=== PATIENT | male | born 1980 | race Caucasian/White ===

== ENCOUNTER 2016-09-18 10:32 | Outpatient (CLI) | payer OTHER ==
[~2016-09-18] VITALS: Ht 167.6 cm; Wt 108.9 kg
--- OUTSIDE RECORDS SUMMARY | 2016-09-18 10:35 | XMS REPORT | Continuity of Care Document ---
Author Author [facility] Organization [facility] Address Unknown Phone Unavailable Allergies Active Description Code Type Severity Reaction Onset Reported/Identified Relationship to Patient Clinical Status Yes meperidine [id number] Drug Allergy Mild N/A 11/12/2014 Medications Problems Date Dx Coded Attending Type Code Diagnosis Diagnosed By 07/31/2014 RHONDA FLORENCE MD Ot 723.1 07/31/2014 RHONDA FLORENCE MD Ot V57.1 08/01/2014 RHONDA FLORENCE MD Ot 723.1 08/01/2014 RHONDA FLORENCE MD Ot V57.1 08/03/2014 RHONDA FLORENCE MD Ot 723.1 08/03/2014 RHONDA FLORENCE MD Ot V57.1 11/12/2014 RHONDA FLORENCE MD Ot 721.0 11/12/2014 RHONDA FLORENCE MD Ot 722.4 11/12/2014 RHONDA FLORENCE MD Ot 729.1 11/12/2014 RHONDA FLORENCE MD Ot V58.69 Procedures Results Encounters ACCT No. Visit Date/Time Discharge Status Pt. Type Provider Facility Loc./Unit Complaint [id number] 11/12/2014 13:22:00 2014 15:14:00 DIS Outpatient RHONDA FLORENCE MD [facility] CARD [id number] 07/31/2014 15:06:00 2013 15:49:00 DIS Outpatient RHONDA FLORENCE MD [facility] REHAB
[2016-09-18] MEDS ORDERED: DEXAMETHASONE PF 10 MG/ML (DECADRON) VIAL ONE (10:39)
[2016-09-18 10:51] VITALS: BP 129/90
[2016-09-18 11:24] VITALS: BP 147/92
--- NOTE | 2016-09-18 14:10 | Pain Medicine-Procedure ---
Procedure Pre-Op/Post-Op Diagnosis Diagnosis: disc disorder with radiculopathy, cervical Indications for Operation Neck pain Attending Surgeon Hany Procedure Date of Service: Sep 18, 2016 Procedure: Cervical Epidural Steroid Injection at the C7-T1 Level under Fluoroscopic Guidance Procedure: Pt was identified in the holding area. After risks, benefits, and alternatives were discussed with the patient, informed consent was obtained. An IV was placed by nursing staff prior to procedure. Patient was brought to the fluoroscopy suite and placed prone on the operating table. A time out was performed. Vital signs were monitored throughout the procedure. The patients neck was prepped and draped in the usual sterile fashion. The patients skin was anesthetized using 1% Lidocaine. A 18 gauge tuohy needle was inserted and advanced to the C7-T1 epidural space under fluoroscopic guidance using the loss of resistance technique. The needle position was confirmed in the AP and lateral view. After negative aspiration 2 ml of non-ionic contrast was injected under live fluoroscopy which showed good spread of the contrast in the epidural space at the appropriate level, there was no intravascular or subarachnoid spread. Again, after negative aspiration, 3 ml of preservative free normal saline and 10 mg of dexamethasone was injected. The needle was removed and the patient was transferred to the recovery area in stable condition. And after a brief period of observation was discharged to home in stable condition with no new neurologic deficits. Complications None RHONDA FLORENCE MD Sep 18, 2016 2:10 pm
== END 2016-09-18 11:26 ==
LOC: CARD 10:32
PROVIDERS: ATTEND Pain Medicine Pain Medicine
DX: M50.13 Cervical disc disorder with radiculopathy, cervicothoracic region (principal); Z79.899 Other long term (current) drug therapy
CPT/HCPCS: 62321

== ENCOUNTER 2019-07-23 22:07 | Emergency (ER) | payer OTHER ==
[~2019-07-23] VITALS: Ht 167 cm; Wt 115.0 kg
[2019-07-23] MEDS ORDERED: KETOROLAC 30 MG/ML VIAL IVP STA (22:22)
[2019-07-23] MEDS ORDERED: METOCLOPRAMIDE INJ 10 MG/2 ML (REGLAN) IVP STA (22:22)
--- NOTE | 2019-07-23 22:22 | ED Back Pain ---
General Chief Complaint: Back Problems Stated Complaint: LOW BACK PAIN Source of Information: Patient Exam Limitations: No Limitations History of Present Illness Date Seen by Provider: Jul 23, 2019 Time Seen by Provider: 22:20 Initial Comments 38-year-old male presents with right lower abdomen and pain that radiates to his back. Patient reports she started getting pain around 7:00. Thinks he has a kidney stone. Patient has had a kidney stone the past and this is similar to it. He denies any vomiting, fevers, chills. Allergies and Home Medications Allergies Coded Allergies: meperidine (Verified Allergy, Mild, 11/12/14) vomiting Home Medications Hydrocodone Bit/Acetaminophen 1 Tab Tab, 1 EACH PO Q8H PRN for PAIN-MODERATE Prescribed by: CHRISTA RUBIO on 07/23/192342 Ondansetron 4 Mg Tab.rapdis, 4 MG PO Q6H PRN for NAUSEA/VOMITING Prescribed by: CHRISTA RUBIO on 07/23/192342 Patient Home Medication List Home Medication List Reviewed: Yes Review of Systems Constitutional: No chills, No fever Respiratory: No cough Cardiovascular: No chest pain Gastrointestinal: see HPI; No constipation, No diarrhea, No vomiting Genitourinary: see HPI Skin: no symptoms reported Past Kxfbbya-Awarlb-Znzjxq Hx Past Med/Social Hx: Reviewed Nursing Past Med/Soc Hx Patient Social History Recent Foreign Travel: No Contact w/Someone Who Travel: No Physical Exam Vital Signs Vital Signs - First Documented 07/23/19 22:10 Temp 36.4 Pulse 62 Resp 18 B/P (MAP) 170/107 (128) Pulse Ox 99 O2 Delivery Room Air Capillary Refill : Height, Weight, BMI Height: 5'6.00" Weight: 240lbs. 0.0oz. 108.624349ni; 38.7 BMI Method: General Appearance: No Apparent Distress, WD/WN Cardiovascular: Regular Rate, Rhythm Respiratory: Chest Non Tender, Lungs Clear Gastrointestinal: Non Tender, Soft Extremity: Normal Capillary Refill, Normal Inspection Neurologic/Psychiatric: Alert, Oriented x3, No Motor/Sensory Deficits, Normal Mood/Affect Skin: Normal Color, Warm/Dry Progress/Results/Core Measures Results/Orders Lab Results Laboratory Tests Test 07/23/19 22:15 Range/Units White Blood Count 9.1 4.3-11.0 10^3/uL Red Blood Count 4.55 4.35-5.85 10^6/uL Hemoglobin 13.9 13.3-17.7 G/DL Hematocrit 41 40-54 % Mean Corpuscular Volume 89 80-99 FL Mean Corpuscular Hemoglobin 31 25-34 PG Mean Corpuscular Hemoglobin Concent 34 32-36 G/DL Red Cell Distribution Width 11.9 10.0-14.5 % Platelet Count 254 130-400 10^3/uL Mean Platelet Volume 9.2 7.4-10.4 FL Neutrophils (%) (Auto) 56 42-75 % Lymphocytes (%) (Auto) 32 12-44 % Monocytes (%) (Auto) 8 0-12 % Eosinophils (%) (Auto) 4 0-10 % Basophils (%) (Auto) 0 0-10 % Neutrophils # (Auto) 5.1 1.8-7.8 X 10^3 Lymphocytes # (Auto) 2.9 1.0-4.0 X 10^3 Monocytes # (Auto) 0.7 0.0-1.0 X 10^3 Eosinophils # (Auto) 0.4 H 0.0-0.3 10^3/uL Basophils # (Auto) 0.0 0.0-0.1 10^3/uL Sodium Level 136 135-145 MMOL/L Potassium Level 4.1 3.6-5.0 MMOL/L Chloride Level 104 98-107 MMOL/L Carbon Dioxide Level 21 21-32 MMOL/L Anion Gap 11 5-14 MMOL/L Blood Urea Nitrogen 12 7-18 MG/DL Creatinine 1.14 0.60-1.30 MG/DL Estimat Glomerular Filtration Rate > 60 BUN/Creatinine Ratio 11 Glucose Level 107 H 70-105 MG/DL Calcium Level 8.5 8.5-10.1 MG/DL My Orders Orders - RUBIO,CHRISTA L DO Ct Abdomen/Pelvis Wo (07/23/19 22:22) Ed Iv/Invasive Line Start (07/23/19 22:22) Basic Metabolic Panel (07/23/19 22:22) Cbc With Automated Diff (07/23/19 22:22) Ua Culture If Indicated (07/23/19 22:22) Metoclopramide Injection (Reglan Injecti (07/23/19 22:22) Ketorolac Injection (Toradol Injection) (07/23/19 22:22) Vital Signs/I&O 07/23/19 22:10 Temp 36.4 Pulse 62 Resp 18 B/P (MAP) 170/107 (128) Pulse Ox 99 O2 Delivery Room Air Diagnostic Imaging Diagonstic Imaging: CT Plain Films/CT/US/NM/MRI: abdomen Comments 3 mm stone right UVJ Reviewed: Reviewed [place] Study, Reviewed by Me Departure Impression Primary Impression: Calculus of distal right ureter Disposition: HOME, SELF-CARE Condition: Stable Departure-Patient Inst. Referrals: NO,LOCAL PHYSICIAN (PCP/Family) Primary Care Physician Patient Instructions: Kidney Stones (DC) Scripts Ondansetron (Ondansetron Odt) 4 Mg Tab.rapdis 4 MG PO Q6H PRN for NAUSEA/VOMITING, #20 TAB Prov: CHRISTA RUBIO DO 07/23/19 Hydrocodone Bit/Acetaminophen (Hydrocodone/Acetaminophen 5/325mg Tablet) 1 Tab Tab 1 EACH PO Q8H PRN for PAIN-MODERATE MDD 10, #5 TAB Prov: CHRISTA RUBIO DO 07/23/19 CHRISTA RUBIO DO Jul 23, 2019 22:22
[2019-07-23 22:26] LABS: HEMATOCRIT 41 % (40-54); HEMOGLOBIN 13.9 G/DL (13.3-17.7); MEAN CORPUSCULAR HEMOGLOBIN 31 PG (25-34); MEAN CORPUSCULAR HGB CONC 34 G/DL (32-36); MEAN CORPUSCULAR VOLUME 89 FL (80-99); WHITE BLOOD COUNT 9.1 10^3/uL (4.3-11.0)
[2019-07-23 22:27] LABS: BASOPHILS % (AUTO) 0 % (0-10); EOSINOPHILS # (AUTO) 0.4 10^3/uL (0.0-0.3); EOSINOPHILS % (AUTO) 4 % (0-10); LYMPHOCYTES # (AUTO) 2.9 X 10^3 (1.0-4.0); LYMPHOCYTES % (AUTO) 32 % (12-44); MEAN PLATELET VOLUME 9.2 FL (7.4-10.4); MONOCYTES # (AUTO) 0.7 X 10^3 (0.0-1.0); MONOCYTES % (AUTO) 8 % (0-12); NEUTROPHILS # (AUTO) 5.1 X 10^3 (1.8-7.8); NEUTROPHILS % (AUTO) 56 % (42-75); PLATELET COUNT 254 10^3/uL (130-400); RED CELL DISTRIBUTION WIDTH 11.9 % (10.0-14.5)
[2019-07-23 22:41] LABS: CARBON DIOXIDE 21 MMOL/L (21-32); CHLORIDE 104 MMOL/L (98-107); POTASSIUM 4.1 MMOL/L (3.6-5.0); SODIUM 136 MMOL/L (135-145)
[2019-07-23 22:42] LABS: BUN/CREATININE RATIO 11; CALCIUM 8.5 MG/DL (8.5-10.1); CREATININE SERUM 1.14 MG/DL (0.60-1.30); GFR ESTIMATED > 60; GLUCOSE 107 MG/DL (70-105)
[2019-07-23] MEDS ORDERED: ONDA4TAB11 PO (23:43)
[2019-07-23] MEDS ORDERED: ACHD5005 PO (23:43)
[2019-07-23 23:45] LABS: CLARITY,URINE CLEAR; COLOR,URINE YELLOW
[2019-07-23 23:46] LABS: BACTERIA,URINE NEGATIVE /HPF; BILIRUBIN,URINE NEGATIVE (NEGATIVE); GLUCOSE, URINE (UA) NEGATIVE (NEGATIVE); KETONES,URINE NEGATIVE (NEGATIVE); LEUKOCYTE ESTERASE ,URINE NEGATIVE (NEGATIVE); NITRITE,URINE NEGATIVE (NEGATIVE); PROTEIN,URINE NEGATIVE (NEGATIVE)
[2019-07-23 23:53] VITALS: BP 116/74
--- NOTE | 2019-07-24 07:28 | Diagnostic Imaging Report ---
PROCEDURE: CT abdomen and pelvis without contrast. TECHNIQUE: Multiple contiguous axial images were obtained through the abdomen and pelvis without the use of intravenous contrast. Auto Exposure Controls were utilized during the CT exam to meet ALARA standards for radiation dose reduction. INDICATION: Right flank pain, history of kidney stones. COMPARISON: None FINDINGS: The lung bases are clear. The heart is normal in size. There is fatty infiltration of the liver. No focal lesions are seen. The spleen appears normal. The adrenal glands are normal. The pancreas appears normal. There is an obstructing calculus in the distal right ureter measuring 2 mm in size. This causes mild hydroureteronephrosis. The left kidney is unremarkable. The bowel loops are nondistended without obstruction. The appendix is normal. There is no free fluid or free air. Heterogeneous hyperdensity is seen in the stomach. No acute osseous abnormality is seen. IMPRESSION: 1. Obstructing calculus in the distal right ureter measuring 2 mm and causing mild hydroureteronephrosis. 2. Hepatic steatosis. Dictated by: Dictated on workstation # [id number]
[2019-07-24] MEDS ORDERED: TAMS0.4C98 PO (12:55)
[2019-07-24] MEDS ORDERED: OXYC1TAB87 PO (12:55)
== END 2019-07-23 23:58 | disposition home or self-care (01) ==
LOC: EDUNIT# 22:07 → ER FS 22:09
DX: N13.2 Hydronephrosis with renal and ureteral calculous obstruction (principal); Z88.5 Allergy status to narcotic agent
CPT/HCPCS: 36415; 74176; 80048; 81000; 85025; 96374; 96375

== ENCOUNTER 2019-07-24 10:44 | Emergency (ER) | payer OTHER ==
[~2019-07-24] VITALS: Ht 167.7 cm; Wt 114.1 kg
[~2019-07-24 10:44] MED LIST: ACHD5005 PO; ONDA4TAB11 PO
[2019-07-24] MEDS ORDERED: ONDANSETRON 4 MG/2 ML (SDV) Z0FRAN IVP ONE (11:15)
[2019-07-24] MEDS ORDERED: KETOROLAC 30 MG/ML VIAL IVP ONE ×2 (11:15→13:30)
[2019-07-24] MEDS ORDERED: NS IV 1000 ML 1,000 ML IV SCH (11:15)
[2019-07-24] MEDS ORDERED: HYDROmorphone 2 MG/ML VIAL (DILAUDID) IVP ONE ×2 (11:15→12:15)
--- NOTE | 2019-07-24 11:32 | ED Abdominal Pain ---
General Chief Complaint: - Urinary Stated Complaint: ABD PAIN Nursing Triage Note: Patient reports he was seen in the ED last night for flank pain and diagnosed with a right 3 mm kidney stone, states he felt much better on discharge, sent home with prescription for hydrocodone, unable to fill it because of the late hour. states she had old hydrocodone and zofran at home that patient has been taking, states he has had 3 (5/325 mg) hydrocodone since discharge last night and has not had pain control, states he has voided twice with difficulty during the night. Sepsis Screen: No Definite Risk Source of Information: Patient History of Present Illness Date Seen by Provider: Jul 24, 2019 Time Seen by Provider: 11:00 Initial Comments Patient came to the emergency room with complaint of having pain in the right flank radiating to the right lower abdomen. He was seen in the ER last night and had a CT abdomen and pelvis which showed a 2 mm stone at the right UVJ. Patient was sent home with the [place] and Zofran. He has taken [place] with not much relief of pain so he came back to the emergency room. He feels nauseous but denies having any vomiting. Patient was in mild distress on arrival to the emergency room. Timing/Duration: 1 Day Severity/Quality: Moderate Location: RLQ, Flank Radiation: Flank Activities at Onset: None Modifying Factors: Improves With Analgesics Associated Symptoms: Denies Symptoms Allergies and Home Medications Allergies Coded Allergies: meperidine (Verified Allergy, Mild, 11/12/14) vomiting Home Medications Hydrocodone Bit/Acetaminophen 1 Tab Tab, 1 EACH PO Q8H PRN for PAIN-MODERATE Prescribed by: CHRISTA RUBIO on 07/23/193 Ondansetron 4 Mg Tab.rapdis, 4 MG PO Q6H PRN for NAUSEA/VOMITING Prescribed by: CHRISTA RUBIO on 07/23/19 2343 Patient Home Medication List Home Medication List Reviewed: Yes Review of Systems Review of Systems Constitutional: see HPI EENTM: No Symptoms Reported Respiratory: No Symptoms Reported Cardiovascular: No Symptoms Reported Gastrointestinal: Abdominal Pain, Nausea Genitourinary: Flank Pain Musculoskeletal: no symptoms reported Skin: no symptoms reported Psychiatric/Neurological: No Symptoms Reported Endocrine: Denies Excessive Sweating Hematologic/Lymphatic: No Symptoms Reported All Other Systems Reviewed Negative Unless Noted: Yes Past Jmbaxhw-Ribwuj-Uklbgk Hx Patient Social History 2nd Hand Smoke Exposure: No Recent Foreign Travel: No Contact w/Someone Who Travel: No Recent Infectious Disease Expo: No Recent Hopitalizations: No Past Medical History Surgeries: No Respiratory: No Cardiac: No Neurological: No Genitourinary: No Gastrointestinal: No Musculoskeletal: No Endocrine: No HEENT: No Cancer: No Psychosocial: Yes Depression Integumentary: No Blood Disorders: No Physical Exam Vital Signs Vital Signs - First Documented 07/24/19 10:55 Temp 36.1 Pulse 58 Resp 20 B/P (MAP) 162/113 (129) Pulse Ox 99 O2 Delivery Room Air Capillary Refill : Less Than 3 Seconds Height/Weight/BMI Height: 5'6.00" Weight: 240lbs. 0.0oz. 108.279855xi; 40.00 BMI Method: General Appearance: mild distress HEENT: normal ENT inspection Neck: supple Respiratory: chest non-tender, lungs clear, normal breath sounds, no respiratory distress Cardiovascular: normal peripheral pulses, regular rate, rhythm Gastrointestinal: normal bowel sounds, soft, no organomegaly, no pulsatile mass, tenderness (on rlq and rt flank) Extremities: non-tender, normal inspection Back: normal inspection Neurologic/Psychiatric: software build engineer II-XII nml as tested, no motor/sensory deficits, alert, normal mood/affect, oriented x 3 Skin: normal color Progress/Results/Core Measures Results/Orders My Orders Orders - AMINTA VALDEZ MD Ketorolac Injection (Toradol Injection) (07/24/19 11:15) Ns Iv 1000 Ml (Sodium Chloride 0.9%) (07/24/19 11:15) Hydromorphone Injection (Dilaudid Inject (07/24/19 11:15) Ondansetron Injection (Zofran Injectio (07/24/19 11:15) Hydromorphone Injection (Dilaudid Inject (07/24/19 12:15) Dexamethasone Injection (Decadron Inject (07/24/19 12:30) Medications Given in ED Current Medications Medications Dose Ordered Sig/Ismael Route Start Time Stop Time Status Last Admin Dose Admin Dexamethasone Sodium Phosphate 10 mg ONCE ONCE IV 07/24/19 12:30 07/24/19 12:31 DC 07/24/19 12:26 10 MG Hydromorphone HCl 1 mg ONCE ONCE IVP 07/24/19 11:15 07/24/19 11:16 DC 07/24/19 11:19 1 MG Hydromorphone HCl 1 mg ONCE ONCE IVP 07/24/19 12:15 07/24/19 12:17 DC 07/24/19 12:26 1 MG Ketorolac Tromethamine 15 mg ONCE ONCE IVP 07/24/19 11:15 07/24/19 11:16 DC 07/24/19 11:18 15 MG Ondansetron HCl 4 mg ONCE ONCE IVP 07/24/19 11:15 07/24/19 11:16 DC 07/24/19 11:18 4 MG Vital Signs/I&O 07/24/19 10:55 Temp 36.1 Pulse 58 Resp 20 B/P (MAP) 162/113 (129) Pulse Ox 99 O2 Delivery Room Air Blood Pressure Mean: 129 Progress Progress Note : Time: 12:52 Progress Note Reviewed lab results and CT results from last night. Patient felt better after Dilaudid and Toradol and IV fluids. We will put the patient on Flomax and advised to use a strainer when urinating and take Percocet for pain. He is comfortable with the plan. Departure Impression Primary Impression: Kidney stone on right side Disposition: 01 HOME, SELF-CARE Condition: Improved Departure-Patient Inst. Decision time for Depature: 12:53 Referrals: SELFRODRIGUEZ MD (PCP/Family) Primary Care Physician Patient Instructions: Kidney Stones (DC) Add. Discharge Instructions: Follow-up with the primary care doctor or urologist in the 3-5 days. Use strainer to urinate. Take Percocet as needed when necessary pain. Take Flomax daily as prescribed. Drink a lot of oral fluids. Return to the emergency room is symptoms worsens or has any concern. All discharge instructions reviewed with patient and/or family. Voiced understanding. Scripts Tamsulosin HCl (Flomax) 0.4 Mg Cap 0.4 MG PO DAILY for 7 Days, CAP Prov: AMINTA VALDEZ MD 07/24/19 Oxycodone HCl/Acetaminophen (Percocet 5-325 mg Tablet) 1 Each Tablet 1 TAB PO Q4H for PAIN-MODERATE MDD 6 TABS for 7 Days, #12 TAB Prov: AMINTA VALDEZ MD 07/24/19 AMINTA VALDEZ MD Jul 24, 2019 11:32
[2019-07-24] MEDS ORDERED: DEXAMETHASONE 4 MG/ML SDV (DECADRON) IV ONE (12:30)
[2019-07-24] MEDS ORDERED: OXYC1TAB87 PO (12:55)
[2019-07-24] MEDS ORDERED: TAMS0.4C98 PO (12:55)
[2019-07-24 13:25] VITALS: BP 162/102
[2019-07-25] MEDS ORDERED: POLY17PO6 PO (14:15)
[2019-07-25] MEDS ORDERED: CEPH500T PO (14:15)
[2019-07-25] MEDS ORDERED: ONDA4TAB11 PO (14:15)
[2019-07-25] MEDS ORDERED: NAPR-1071 PO (14:15)
[2019-07-25] MEDS ORDERED: OXYC1TAB12 PO (14:15)
== END 2019-07-24 13:31 | disposition home or self-care (01) ==
LOC: EDUNIT# 10:44 → ER FS 10:45
DX: N13.2 Hydronephrosis with renal and ureteral calculous obstruction (principal); F32.9 Major depressive disorder, single episode, unspecified; Z88.5 Allergy status to narcotic agent
CPT/HCPCS: 96361; 96374; 96375; 96376

== ENCOUNTER 2019-07-25 10:18 | Emergency (ER) | payer OTHER ==
[~2019-07-25] VITALS: Ht 167.7 cm; Wt 106.8 kg
[~2019-07-25 10:18] MED LIST changes: +OXYC1TAB87 PO; +TAMS0.4C98 PO
[2019-07-25] MEDS ORDERED: NS IV 1000 ML 1,000 ML IV SCH (11:08)
--- NOTE | 2019-07-25 11:13 | NUR ---
Pt stated he has not had a BM in 3 days. Last time urinated was this morning. No blood in urine. Drinking lots of water and feels like he should have urinated 10 times.
--- NOTE | 2019-07-25 11:13 | NUR ---
report given to HENRY Laird. Care was transferred
[2019-07-25] MEDS ORDERED: KETOROLAC 30 MG/ML VIAL IVP ONE (11:15)
--- NOTE | 2019-07-25 11:24 | ED GU-Male ---
General Chief Complaint: - Urinary Stated Complaint: RT FLANK PAIN Nursing Triage Note: Patient arrived by private vehicle with spouse with chief compliant of right flank pain. Pt has been seen 3 times in ER for this issue. Pt was seen last night with kidney stone. Pain had moved to groin, but is not back at right lower back pain. Pt has had a lot of water and is not able to urinate. Pt has taken oxycodone and hydrocodone for pain. pain is a 9 Source: patient, spouse Exam Limitations: no limitations History of Present Illness Date Seen by Provider: Jul 25, 2019 Time Seen by Provider: 11:10 Initial Comments Patient presents ER by private conveyance for the third time in 3 days with history of kidney stone. The stone was in his right ureterovesicular junction and he was put on Flomax pain meds and the hydrocodone was not working so he came back yesterday and was put on Percocet. The Percocet was not helping. He is not using any NSAIDs home. He is not on antibiotics. He is taking Flomax. He's had 2 kidney stones before but he's never needed help treating them. He was told it was 3 mm. He's had a right inguinal hernia repair years ago but no other abdominal surgeries. He says been drinking water all morning but unable to urinate. He still feels the pain in the same spot on his right inguinal him and it has not radiated, stopped or improved. He said the Toradol in the ER helped but nothing else has helped. No other significant medical history. Allergies and Home Medications Allergies Coded Allergies: meperidine (Verified Allergy, Mild, 11/12/14) vomiting Home Medications Hydrocodone Bit/Acetaminophen 1 Tab Tab, 1 EACH PO Q8H PRN for PAIN-MODERATE Prescribed by: CHRISTA RUBIO on 07/23/19 2343 Ondansetron 4 Mg Tab.rapdis, 4 MG PO Q6H PRN for NAUSEA/VOMITING Prescribed by: CHRISTA RUBIO on 07/23/19 2346 Oxycodone HCl/Acetaminophen 1 Each Tablet, 1 TAB PO Q4H Prescribed by: AMINTA VALDEZ on 07/24/19 1255 Tamsulosin HCl 0.4 Mg Cap, 0.4 MG PO DAILY Prescribed by: AMINTA VALDEZ on 07/24/19 1255 Patient Home Medication List Home Medication List Reviewed: Yes Review of Systems Review of Systems Constitutional: No chills, No fever, No malaise EENTM: No ear discharge, No ear pain Respiratory: No cough, No short of breath Cardiovascular: No chest pain, No edema Gastrointestinal: abdominal pain (RLQ), constipation (3 days); No diarrhea; nausea; No vomiting Genitourinary: denies burning, denies discharge; dysuria Musculoskeletal: back pain (r cva) Psychiatric/Neurological: Denies Anxiety, Denies Depressed All Other Systemes Reviewed Negative Unless Noted: Yes Past Qtlcivb-Kkktir-Wymult Hx Patient Social History Alcohol Use: Denies Use Recreational Drug Use: No Smoking Status: Never a Smoker 2nd Hand Smoke Exposure: No Recent Foreign Travel: No Contact w/Someone Who Travel: No Recent Infectious Disease Expo: No Recent Hopitalizations: No Physical Abuse: No Sexual Abuse: No Mistreated: No Fear: No Seasonal Allergies Seasonal Allergies: No Past Medical History Surgeries: No Respiratory: No Cardiac: No Neurological: No Genitourinary: Yes Kidney Stones Gastrointestinal: No Musculoskeletal: No Endocrine: No HEENT: No Cancer: No Psychosocial: Yes Depression Integumentary: No Blood Disorders: No Physical Exam Vital Signs Vital Signs - First Documented 07/25/19 11:01 Temp 37.2 Pulse 87 Resp 20 B/P (MAP) 147/85 (105) Pulse Ox 100 O2 Delivery Room Air Capillary Refill : Less Than 3 Seconds Height, Weight, BMI Height: 5'6.00" Weight: 240lbs. 0.0oz. 108.178946ig; 37.00 BMI Method: General Appearance: WD/WN, mild distress HEENT: PERRL/EOMI, pharynx normal Neck: full range of motion, normal inspection Cardiovascular: normal peripheral pulses, regular rate, rhythm Respiratory: no respiratory distress, no accessory muscle use Gastrointestinal: normal bowel sounds, soft, tenderness (right inguinal him, mild) Back: CVA tenderness (R) Extremities: normal range of motion, normal capillary refill Neurologic/Psychiatric: alert, normal mood/affect, oriented x 3 Skin: normal color, warm/dry Progress/Results/Core Measures Suspected Sepsis Recent Fever Within 48 Hours: No Infection Criteria Present: None New/Unexplained Altered Menta: No Sepsis Screen: No Definite Risk SIRS Temperature: Pulse: 87 Respiratory Rate: 20 Laboratory Tests 07/25/19 11:20: White Blood Count 18.6H Blood Pressure 147 /85 Mean: 105 Laboratory Tests 07/25/19 11:20: Creatinine 1.75H, Platelet Count 243 Results/Orders Lab Results Laboratory Tests Test 07/25/19 11:20 07/25/19 12:55 Range/Units White Blood Count 18.6 H 4.3-11.0 10^3/uL Red Blood Count 4.67 4.35-5.85 10^6/uL Hemoglobin 14.1 13.3-17.7 G/DL Hematocrit 41 40-54 % Mean Corpuscular Volume 89 80-99 FL Mean Corpuscular Hemoglobin 30 25-34 PG Mean Corpuscular Hemoglobin Concent 34 32-36 G/DL Red Cell Distribution Width 11.8 10.0-14.5 % Platelet Count 243 130-400 10^3/uL Mean Platelet Volume 9.6 7.4-10.4 FL Neutrophils (%) (Auto) 85 H 42-75 % Lymphocytes (%) (Auto) 7 L 12-44 % Monocytes (%) (Auto) 8 0-12 % Eosinophils (%) (Auto) 0 0-10 % Basophils (%) (Auto) 0 0-10 % Neutrophils # (Auto) 15.8 H 1.8-7.8 X 10^3 Lymphocytes # (Auto) 1.2 1.0-4.0 X 10^3 Monocytes # (Auto) 1.4 H 0.0-1.0 X 10^3 Eosinophils # (Auto) 0.0 0.0-0.3 10^3/uL Basophils # (Auto) 0.0 0.0-0.1 10^3/uL Neutrophils % (Manual) 82 % Lymphocytes % (Manual) 7 % Monocytes % (Manual) 6 % Band Neutrophils 5 % Blood Morphology Comment NORMAL Sodium Level 137 135-145 MMOL/L Potassium Level 4.3 3.6-5.0 MMOL/L Chloride Level 100 98-107 MMOL/L Carbon Dioxide Level 25 21-32 MMOL/L Anion Gap 12 5-14 MMOL/L Blood Urea Nitrogen 16 7-18 MG/DL Creatinine 1.75 H 0.60-1.30 MG/DL Estimat Glomerular Filtration Rate 43 BUN/Creatinine Ratio 9 Glucose Level 106 H 70-105 MG/DL Calcium Level 8.9 8.5-10.1 MG/DL Urine Color YELLOW Urine Clarity CLEAR Urine pH 6.0 5-9 Urine Specific [place] 1.010 L 1.016-1.022 Urine Protein NEGATIVE NEGATIVE Urine Glucose (UA) NEGATIVE NEGATIVE Urine Ketones NEGATIVE NEGATIVE Urine Nitrite NEGATIVE NEGATIVE Urine Bilirubin NEGATIVE NEGATIVE Urine Urobilinogen 0.2 < = 1.0 MG/DL Urine Leukocyte Esterase NEGATIVE NEGATIVE Urine RBC (Auto) NEGATIVE NEGATIVE Urine RBC NONE /HPF Urine WBC 0-2 /HPF Urine Squamous Epithelial Cells 0-2 /HPF Urine Crystals NONE /LPF Urine Bacteria NEGATIVE /HPF Urine Casts NONE /LPF Urine Mucus NEGATIVE /LPF Urine Culture Indicated NO My Orders Orders - FANNY BRINK Ed Iv/Invasive Line Start (07/25/19 11:08) Ns Iv 1000 Ml (Sodium Chloride 0.9%) (07/25/19 11:08) Ketorolac Injection (Toradol Injection) (07/25/19 11:15) Cbc With Automated Diff (07/25/19 11:18) Basic Metabolic Panel (07/25/19 11:18) Manual Differential (07/25/19 11:20) Ceftriaxone For Iv Use (Rocephin For I (07/25/19 11:45) Blood Culture (07/25/19 11:45) Ct Abd/Pelvis Wo(Kidney Stone) (07/25/19 11:50) Ua Culture If Indicated (07/25/19 12:24) Medications Given in ED Current Medications Medications Dose Ordered Sig/Ismael Route Start Time Stop Time Status Last Admin Dose Admin Ceftriaxone Sodium 1000 mg/ Sterile Water 10 ml @ 200 mls/hr ONCE ONCE IV 07/25/19 11:45 07/25/19 11:47 DC 07/25/19 12:01 200 MLS/HR Ketorolac Tromethamine 30 mg ONCE ONCE IVP 07/25/19 11:15 07/25/19 11:16 DC 07/25/19 11:28 30 MG Vital Signs/I&O 07/25/19 11:01 Temp 37.2 Pulse 87 Resp 20 B/P (MAP) 147/85 (105) Pulse Ox 100 O2 Delivery Room Air Capillary Refill : Less Than 3 Seconds Blood Pressure Mean: 105 Progress Note #1: Time: 11:23 Progress Note Establish an IV get some labs checked his kidney function with a BMP and give him a liter fluids to help him urinate. We will obtain a urinalysis and review previous records. Toradol 30 mg IV. Progress Note #2: Time: 11:47 Progress Note White count of 18,000. Vital signs are aseptic. Get some blood cultures and give a gram of Rocephin IV as I suspect he may have pyelonephritis with his new onset right flank pain in addition to his right groin pain. He was seen yesterday and they reviewed the CT results but did not repeat it. Demonstrated an obstructing 2 mm ureteral calculi right lower ureter. He was given Dilaudid and Toradol as well as IV fluids put on Flomax and sent home on Percocet instead of hydrocodone's. He was comfortable with this pain at that time. At this point the Toradol has been given and he is feeling better in terms of pain. Plan to repeat CT looking for evidence of obstruction that may need immediate relief by urology. Progress Note #3: Time: 14:08 Progress Note 1315: Transfer RN at [place], [place]. Left . 1335: Discussed the case with Dr. Adam, urology at [place], [place]. He does agrees with the need for inpatient management of the ureteral stone. He says that he wanted to admit him locally or in [facility] for pain management and IV fluids it would be reasonable that he does not think the stone needs to be taken care emergently. He would suggest follow up outpatient with urologist locally. Discussed the case and recommendations from the urologist with patient and offered to put him up locally for fluids pain management and monitoring labs versus letting him go home and trial more potent pain medicines including naproxen and Percocet tens every 4 hours as needed. He would prefer just to go home and try stay home because he's been pain-free since we gave him the Toradol. Her going to encourage him to drink plenty of fluids and talk to his primary care team to help arrange outpatient management of his symptoms and have given him good return precautions and he is in agreement with this plan. Diagnostic Imaging Diagonstic Imaging: CT (without IV contrast) Plain Films/CT/US/NM/MRI: abdomen, pelvis Comments NAME: MARIOLANICOLASDAYANA S [facility] REC#: [id number] PT STATUS: REG ER : 1980 PHYSICIAN: FANNY BRINK MD ADMIT DATE: 07/25/19/ER FS Signed Date of Exam:07/25/19 CT ABD/PELVIS WO(KIDNEY STONE) PROCEDURE: CT urinary tract, rule out kidney stone. TECHNIQUE: Multiple contiguous axial images were obtained through the abdomen and pelvis without the use of intravenous contrast. Auto Exposure Controls were utilized during the CT exam to meet ALARA standards for radiation dose reduction. INDICATION: Right flank pain. Pain is increasing in severity since exam two days earlier. COMPARISON: Correlation is made with CT study from 07/23/2019. FINDINGS: The lung bases are clear. Diffuse low-density throughout the liver is again noted consistent with hepatic steatosis. Gallbladder is unremarkable. There is no biliary ductal dilatation. The pancreas and spleen are unremarkable. No adrenal mass is detected. The left kidney and ureter are unremarkable. There continues to be mild to moderate hydroureteronephrosis on the right. The dilated right ureter is traced to the level of the UVJ where the previously noted 2 mm calculus is located. The degree of perinephric and periureteral inflammatory stranding has increased since prior exam. No perinephric fluid collection is seen. Aorta is non-aneurysmal. Bowel loops are normal caliber. Appendix is unremarkable. There is no free fluid or fluid collection. Bladder, prostate and seminal vesicles are unremarkable. IMPRESSION: 1. 2 mm right UVJ calculus producing moderate hydroureteronephrosis. There has been an increase in the amount of perinephric and periureteral inflammatory stranding on the right since CT two days earlier. Infectious/inflammatory changes cannot be entirely excluded and correlation with urinalysis is recommended. No other significant abnormality is seen. Dictated by: Dictated on workstation # [id number] Dict: 07/25/19 1231 Trans: 07/25/19 1248 [id number] Interpreted by: FAUZIA HINTON MD Electronically signed by: FAUZIA HINTON MD 07/25/19 1248 Reviewed: Reviewed by Me Consults Consults : Consulting Physician: RETA COLLIER MD Consults Notes Discussed the case with Dr. Collier and he recommends a patient go on to some oral stomach and help him in the acute setting today. He suggests [facility]. 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 Departure Communication (PCP) Discussed case with Dr. Garber, primary care and she will help follow-up on an outpatient side. Impression Primary Impression: Hydronephrosis with urinary obstruction due to ureteral calculus Additional Impressions: Urinary tract infection Qualified Codes: N30.00 - Acute cystitis without hematuria Therapeutic opioid-induced constipation (OIC) Disposition: HOME, SELF-CARE Condition: Improved Departure-Patient Inst. Decision time for Depature: 14:10 Referrals: SELFRODRIGUEZ MD (PCP/Family) Primary Care Physician RETA COLLIER MD Patient Instructions: Urinary Obstruction (DC) Add. Discharge Instructions: As long as you can maintain your pain under control with Percocet 10 x 3 25 every 4 hours as needed as well as naproxen 500 mg twice a day as needed then you can follow-up with urology by calling for an outpatient appointment at the above listed number. Zofran/ondansetron 1 tablet under the tongue every 6 hours as needed for nausea. Heating pads applied to the back and be helpful. If your pain is intolerable please return to the ER. If you begin to develop fevers or other concerning symptoms please return to the ER. Keflex one capsule twice a day for the next 10 days to prevent bladder infection. Take the Flomax 1 capsule daily to try and help pass the stone. Drink lots of fluids. Caffeine is okay. 1 capful of MiraLAX in 6-8 ounces of fluid of your choice twice a day until you break free with your constipation. All discharge instructions reviewed with patient and/or family. Voiced understanding. Scripts Polyethylene Glycol 3350 (Miralax) 17 Gm Powd.pack 17 GM PO BID PRN for CONSTIPATION-1ST LINE, #1 EACH 0 Refills Prov: FANNY BRINK 07/25/19 Naproxen (Naprosyn) 500 Mg Tablet 500 MG PO BID, #30 TAB 0 Refills Prov: FANNY BRINK 07/25/19 Cephalexin (Cephalexin) 500 Mg Tablet 500 MG PO BID for 10 Days, #20 TAB 0 Refills Prov: FANNY BRINK 07/25/19 Oxycodone HCl/Acetaminophen (Percocet 10-325 mg Tablet) 1 Each Tablet 1 TAB PO Q4H PRN for PAIN-BREAKTHROUGH MDD 3 TABS, #20 TAB 0 Refills Prov: FANNY BRINK 07/25/19 Ondansetron (Ondansetron Odt) 4 Mg Tab.rapdis 4 MG PO Q6H PRN for NAUSEA/VOMITING, #8 TAB 0 Refills Prov: FANNY BRINK 07/25/19 Work/School Note: Work Release Form Date Seen in the Emergency Department: Jul 25, 2019 Return to Work: Jul 28, 2019 Restrictions: No Restrictions FANNY BRINK Jul 25, 2019 11:24
[2019-07-25 11:35] LABS: BASOPHILS % (AUTO) 0 % (0-10); EOSINOPHILS % (AUTO) 0 % (0-10); HEMATOCRIT 41 % (40-54); HEMOGLOBIN 14.1 G/DL (13.3-17.7); LYMPHOCYTES # (AUTO) 1.2 X 10^3 (1.0-4.0); LYMPHOCYTES % (AUTO) 7 % (12-44); MEAN CORPUSCULAR HEMOGLOBIN 30 PG (25-34); MEAN CORPUSCULAR HGB CONC 34 G/DL (32-36); MEAN CORPUSCULAR VOLUME 89 FL (80-99); MEAN PLATELET VOLUME 9.6 FL (7.4-10.4); MONOCYTES # (AUTO) 1.4 X 10^3 (0.0-1.0); MONOCYTES % (AUTO) 8 % (0-12); NEUTROPHILS # (AUTO) 15.8 X 10^3 (1.8-7.8); NEUTROPHILS % (AUTO) 85 % (42-75); PLATELET COUNT 243 10^3/uL (130-400); RED CELL DISTRIBUTION WIDTH 11.8 % (10.0-14.5); WHITE BLOOD COUNT 18.6 10^3/uL (4.3-11.0)
[2019-07-25] MEDS ORDERED: cefTRIAXone FOR IV USE 1,000 MG in WATER (STERILE) FOR INJECTION 10 ML IV ONE (11:45)
[2019-07-25 12:00] LABS: CALCIUM 8.9 MG/DL (8.5-10.1); CREATININE SERUM 1.75 MG/DL (0.60-1.30); POTASSIUM 4.3 MMOL/L (3.6-5.0)
[2019-07-25 12:04] LABS: BAND NEUTROPHILS 5 %; LYMPHOCYTES % (MANUAL) 7 %; MONOCYTES % (MANUAL) 6 %; NEUTROPHILS % (MANUAL) 82 %
[2019-07-25 12:05] LABS: RBC MORPH NORMAL
--- NOTE | 2019-07-25 12:41 | Diagnostic Imaging Report ---
PROCEDURE: CT urinary tract, rule out kidney stone. TECHNIQUE: Multiple contiguous axial images were obtained through the abdomen and pelvis without the use of intravenous contrast. Auto Exposure Controls were utilized during the CT exam to meet ALARA standards for radiation dose reduction. INDICATION: Right flank pain. Pain is increasing in severity since exam two days earlier. COMPARISON: Correlation is made with CT study from 07/23/2019. FINDINGS: The lung bases are clear. Diffuse low-density throughout the liver is again noted consistent with hepatic steatosis. Gallbladder is unremarkable. There is no biliary ductal dilatation. The pancreas and spleen are unremarkable. No adrenal mass is detected. The left kidney and ureter are unremarkable. There continues to be mild to moderate hydroureteronephrosis on the right. The dilated right ureter is traced to the level of the UVJ where the previously noted 2 mm calculus is located. The degree of perinephric and periureteral inflammatory stranding has increased since prior exam. No perinephric fluid collection is seen. Aorta is non-aneurysmal. Bowel loops are normal caliber. Appendix is unremarkable. There is no free fluid or fluid collection. Bladder, prostate and seminal vesicles are unremarkable. IMPRESSION: 1. 2 mm right UVJ calculus producing moderate hydroureteronephrosis. There has been an increase in the amount of perinephric and periureteral inflammatory stranding on the right since CT two days earlier. Infectious/inflammatory changes cannot be entirely excluded and correlation with urinalysis is recommended. No other significant abnormality is seen. Dictated by: Dictated on workstation # [id number]
[2019-07-25 13:07] LABS: BACTERIA,URINE NEGATIVE /HPF; BILIRUBIN,URINE NEGATIVE (NEGATIVE); CLARITY,URINE CLEAR; COLOR,URINE YELLOW; GLUCOSE, URINE (UA) NEGATIVE (NEGATIVE); KETONES,URINE NEGATIVE (NEGATIVE); LEUKOCYTE ESTERASE ,URINE NEGATIVE (NEGATIVE); NITRITE,URINE NEGATIVE (NEGATIVE); PROTEIN,URINE NEGATIVE (NEGATIVE); SQUAMOUS EPITHELIAL CELL,UR 0-2 /HPF; WBC,URINE 0-2 /HPF
[2019-07-25] MEDS ORDERED: ONDA4TAB11 PO (14:15)
[2019-07-25] MEDS ORDERED: CEPH500T PO (14:15)
[2019-07-25] MEDS ORDERED: OXYC1TAB12 PO (14:15)
[2019-07-25] MEDS ORDERED: NAPR-1071 PO (14:15)
[2019-07-25] MEDS ORDERED: POLY17PO6 PO (14:15)
[2019-07-25 14:40] VITALS: BP 144/99
== END 2019-07-25 14:40 | disposition home or self-care (01) ==
LOC: EDUNIT# 10:18 → ER FS 10:19
DX: N13.6 Pyonephrosis (principal); K59.03 Drug induced constipation; T40.2X5A Adverse effect of other opioids, initial encounter; F32.9 Major depressive disorder, single episode, unspecified; Z88.5 Allergy status to narcotic agent
CPT/HCPCS: 36415; 74176; 80048; 81000; 85007; 85027; 87040; 96374; 96375

== ENCOUNTER 2022-07-20 06:26 | Emergency (ER) | payer BC, OTHER ==
[~2022-07-20 06:26] MED LIST changes: +CEPH500T PO; +NAPR-1071 PO; +OXYC1TAB12 PO; +POLY17PO6 PO; -TAMS0.4C98 PO; +TMSL.4C PO
--- NOTE | 2022-07-20 06:34 | ED Chest Pain ---
General Stated Complaint: CHEST PAIN History of Present Illness Date Seen by Provider: Jul 20, 2022 Time Seen by Provider: 06:29 Initial Comments 41-year-old male presents with chest pain started around 5 this morning. Its had mid chest and little to the left side, he has pain that radiates to his back. He reports that it is constant. Does not really radiate. It does not radiate anywhere else. He does have a history of reflux. No shortness of breath or other systemic complaints. No recent illnesses fevers chills nausea or vomiting. (CHRISTA RUBIO DO) Allergies and Home Medications Allergies Coded Allergies: meperidine (Verified Allergy, Mild, 11/12/14) vomiting Patient Home Medication List Home Medication List Reviewed: Yes (CHRISTA RUBIO DO) Cephalexin (Cephalexin) 500 Mg Tablet, 500 MG PO BID Prescribed by: FANNY BRINK on 07/25/19 1415 Hydrocodone Bit/Acetaminophen (Lortab 5 Mg Tablet) 1 Tab Tab, 1 EACH PO Q8H PRN for PAIN-MODERATE Prescribed by: CHRISTA RUBIO on 07/23/19 2343 Naproxen (Naprosyn) 500 Mg Tablet, 500 MG PO BID Prescribed by: FANNY BRINK on 07/25/19 1415 Ondansetron (Ondansetron Odt) 4 Mg Tab.rapdis, 4 MG PO Q6H PRN for NAUSEA/VOMITING Prescribed by: CHRISTA RUBIO on 07/23/19 2343 Ondansetron (Ondansetron Odt) 4 Mg Tab.rapdis, 4 MG PO Q6H PRN for NAUSEA/VOMITING Prescribed by: FANNY BRINK on 07/25/19 1415 Oxycodone HCl/Acetaminophen (Percocet 5-325 mg Tablet) 1 Each Tablet, 1 TAB PO Q4H Prescribed by: AMINTA VALDEZ on 07/24/19 1255 Oxycodone HCl/Acetaminophen (Percocet 10-325 mg Tablet) 1 Each Tablet, 1 TAB PO Q4H PRN for PAIN-BREAKTHROUGH Prescribed by: FANNY BRINK on 07/25/19 1415 Polyethylene Glycol 3350 (Miralax) 17 Gm Powd.pack, 17 GM PO BID PRN for CONSTIPATION-1ST LINE Prescribed by: FANNY BRINK on 07/25/19 1415 Tamsulosin HCl (Flomax) 0.4 Mg Cap, 0.4 MG PO DAILY Prescribed by: AMINTA VALDEZ on 07/24/19 1255 Review of Systems Review of Systems Constitutional: no symptoms reported Respiratory: Denies Cough Cardiovascular: Chest Pain; Denies Irregular Heart Rate Gastrointestinal: Denies Abdominal Pain, Denies Nausea, Denies Vomiting Genitourinary: No Symptoms Reported Musculoskeletal: no symptoms reported Skin: no symptoms reported Psychiatric/Neurological: No Symptoms Reported Endocrine: No Symptoms Reported (CHRISTA RUBIO DO) Physical Exam Vital Signs Vital Signs - First Documented 07/20/22 06:28 Pulse 98 Resp 20 B/P (MAP) 150/102 (118) Pulse Ox 96 O2 Delivery Room Air (MIRTA LOWE MD) Vital Signs Capillary Refill : (CHRISTA RUBIO DO) Height, Weight, BMI Height: '" Weight: lbs. oz. kg; BMI Method: General Appearance: No Apparent Distress Neck: Normal Inspection, Non Tender Respiratory: Lungs Clear, Normal Breath Sounds Cardiovascular: Regular Rate, Rhythm, No Edema Gastrointestinal: Non Tender, Soft Neurologic/Psychiatric: Oriented x3, No Motor/Sensory Deficits, Normal Mood/Affect Skin: Normal Color, Warm/Dry (CHRISTA RUBIO DO) Progress/Results/Core Measures Results/Orders Lab Results Laboratory Tests Test 07/20/22 06:37 07/20/22 07:49 Range/Units White Blood Count 8.6 4.3-11.0 10^3/uL Red Blood Count 5.19 4.30-5.52 10^6/uL Hemoglobin 15.7 13.3-17.7 g/dL Hematocrit 45 40-54 % Mean Corpuscular Volume 86 80-99 fL Mean Corpuscular Hemoglobin 30 25-34 pg Mean Corpuscular Hemoglobin Concent 35 32-36 g/dL Red Cell Distribution Width 12.4 10.0-14.5 % Platelet Count 282 130-400 10^3/uL Mean Platelet Volume 9.2 9.0-12.2 fL Immature Granulocyte % (Auto) 1 % Neutrophils (%) (Auto) 64 42-75 % Lymphocytes (%) (Auto) 26 12-44 % Monocytes (%) (Auto) 8 0-12 % Eosinophils (%) (Auto) 2 0-10 % Basophils (%) (Auto) 1 0-10 % Neutrophils # (Auto) 5.5 1.8-7.8 10^3/uL Lymphocytes # (Auto) 2.3 1.0-4.0 10^3/uL Monocytes # (Auto) 0.7 0.0-1.0 10^3/uL Eosinophils # (Auto) 0.1 0.0-0.3 10^3/uL Basophils # (Auto) 0.0 0.0-0.1 10^3/uL Immature Granulocyte # (Auto) 0.0 0.0-0.1 10^3/uL Prothrombin Time 12.1 L 12.2-14.7 SEC INR Comment 0.9 0.8-1.4 Activated Partial Thromboplast Time 29 24-35 SEC Sodium Level 137 135-145 MMOL/L Potassium Level 4.4 3.6-5.0 MMOL/L Chloride Level 107 98-107 MMOL/L Carbon Dioxide Level 22 21-32 MMOL/L Anion Gap 8 5-14 MMOL/L Blood Urea Nitrogen 12 7-18 MG/DL Creatinine 1.18 0.60-1.30 MG/DL Estimat Glomerular Filtration Rate 79 BUN/Creatinine Ratio 10 Glucose Level 93 70-105 MG/DL Calcium Level 8.9 8.5-10.1 MG/DL Corrected Calcium 8.7 8.5-10.1 MG/DL Magnesium Level 2.2 1.6-2.4 MG/DL Total Bilirubin 0.4 0.1-1.0 MG/DL Aspartate Amino Transf (AST/SGOT) 14 5-34 U/L Alanine Aminotransferase (ALT/SGPT) 18 0-55 U/L Alkaline Phosphatase 83 40-136 U/L Myoglobin 22.2 <72.0 NG/ML Troponin I < 0.30 <0.30 NG/ML Total Protein 7.4 6.4-8.2 GM/DL Albumin 4.3 3.2-4.5 GM/DL Lipase 52 8-78 U/L (MIRTA LOWE MD) My Orders Orders - MIRTA LOWE MD Lipase (07/20/22 07:01) Lidocaine 2% Viscous 15 Ml (Xylocaine Vi (07/20/22 07:30) Famotidine Tablet (Pepcid Tablet) (07/20/22 07:29) Antacid Suspension (Mylanta Suspension (07/20/22 07:30) Troponin I Fs (07/20/22 07:44) (MIRTA LOWE MD) Medications Given in ED Current Medications Medications Dose Ordered Sig/Ismael Route Start Time Stop Time Status Last Admin Dose Admin Al Hydrox/Mg Hydrox/Simethicone 30 ml ONCE ONCE PO 07/20/22 07:30 07/20/22 07:31 DC 07/20/22 07:37 30 ML Aspirin 324 mg ONCE ONCE PO 07/20/22 07:00 07/20/22 07:01 DC 07/20/22 06:50 324 MG Lidocaine HCl 15 ml ONCE ONCE PO 07/20/22 07:30 07/20/22 07:31 DC 07/20/22 07:37 15 ML (MIRTA LOWE MD) Vital Signs/I&O 07/20/22 06:28 Pulse 98 Resp 20 B/P (MAP) 150/102 (118) Pulse Ox 96 O2 Delivery Room Air (MIRTA LOWE MD) Progress Progress Note : Progress Note Patient was signed out from the outgoing physician pending his work-up for his chest pain. ABCs were intact and vitals were stable on presentation. On my evaluation initially, his pain has nearly completely resolved. Trialed a GI cocktail to see if that would change symptoms as well. EKG appears nonischemic. Chest x-ray clear. Initial troponin negative, repeat drawn and was also negative. He is otherwise low risk for PE and is PERC negative. Low suspicion for aortic dissection given his symptoms resolved. The patient's blood pressure is elevated with diastolic around 100 on repeat. He states he does not have a diagnosis of high blood pressure. I discussed he needs to take his blood pressure once to 2 times a day and write a journal to take to his PCP in the next 1 to 2 weeks to see if he needs to start on medications (MIRTA LOWE MD) Initial ECG Impression Date: Jul 20, 2022 Initial ECG Impression Time: 06:38 Initial ECG Rate: 81 Initial ECG Rhythm: Normal Sinus Comment Narrow QRS, normal axis, no significant ST changes, T wave flattening in the leads aVL and lead III which are nonspecific (MIRTA LOWE MD) Diagnostic Imaging Diagonstic Imaging: Xray (chest) Comments [facility], [facility]. [place], [place] NAME: DAYANA HUGHES [facility] REC#: [id number] PT STATUS: REG ER : 1980 PHYSICIAN: CHRISTA RUBIO DO ADMIT DATE: 07/20/22/ER FS Draft Date of Exam:07/20/22 CHEST 1 VIEW AP/PA ONLY Clinical indications: Patient had chest pain since 0500. EXAM: Portable chest x-ray upright view. COMPARISON: None. FINDINGS: Lungs/pleura: Lungs are clear. There is no pneumothorax. There is no pleural effusion. Mediastinum: Unremarkable. Pulmonary vasculature: Unremarkable. Heart: Unremarkable. Bones/extrathoracic soft tissue: There are small degenerative spurs involving the spine.. IMPRESSION: There is no radiographic evidence of acute cardiopulmonary process. Dictated on workstation # [id number] Dict: 07/20/22 0701 Trans: 07/20/22 0709 [facility] [id number] Interpreted by: KRISTIAN PARKER MD Electronically signed by: (MIRTA LOWE MD) Departure Impression Primary Impression: Chest pain Qualified Codes: R07.82 - Intercostal pain Disposition: 01 HOME, SELF-CARE Condition: Stable Departure-Patient Inst. Decision time for Depature: 08:35 (MIRTA LOWE MD) Referrals: LOUIS DOUGLAS MD FACP FACC CCDS Patient Instructions: Chest Pain (DC) Add. Discharge Instructions: It does not appear like you are having a heart attack here in the ER. I would like you to follow-up with a director payer, Dr. Douglas for further evaluation. His number is in the paperwork. Work/School Note: Work Release Form Date Seen in the Emergency Department: Jul 20, 2022 Return to Work: Jul 21, 2022 Restrictions: No Restrictions CHRISTA RUBIO DO Jul 20, 2022 06:34 MIRTA LOWE MD Jul 20, 2022 07:34
[2022-07-20 06:57] LABS: BASOPHILS % (AUTO) 1 % (0-10); EOSINOPHILS # (AUTO) 0.1 10^3/uL (0.0-0.3); EOSINOPHILS % (AUTO) 2 % (0-10); HEMATOCRIT 45 % (40-54); HEMOGLOBIN 15.7 g/dL (13.3-17.7); LYMPHOCYTES # (AUTO) 2.3 10^3/uL (1.0-4.0); LYMPHOCYTES % (AUTO) 26 % (12-44); MEAN CORPUSCULAR HEMOGLOBIN 30 pg (25-34); MEAN CORPUSCULAR HGB CONC 35 g/dL (32-36); MEAN CORPUSCULAR VOLUME 86 fL (80-99); MEAN PLATELET VOLUME 9.2 fL (9.0-12.2); MONOCYTES # (AUTO) 0.7 10^3/uL (0.0-1.0); MONOCYTES % (AUTO) 8 % (0-12); NEUTROPHILS # (AUTO) 5.5 10^3/uL (1.8-7.8); NEUTROPHILS % (AUTO) 64 % (42-75); PLATELET COUNT 282 10^3/uL (130-400); WHITE BLOOD COUNT 8.6 10^3/uL (4.3-11.0)
[2022-07-20] MEDS ORDERED: ASPIRIN 81 MG CHEW (CHILDREN'S ASA) PO ONE (07:00)
--- NOTE | 2022-07-20 07:10 | Diagnostic Imaging Report ---
Clinical indications: Patient had chest pain since 0500. EXAM: Portable chest x-ray upright view. COMPARISON: None. FINDINGS: Lungs/pleura: Lungs are clear. There is no pneumothorax. There is no pleural effusion. Mediastinum: Unremarkable. Pulmonary vasculature: Unremarkable. Heart: Unremarkable. Bones/extrathoracic soft tissue: There are small degenerative spurs involving the spine.. IMPRESSION: There is no radiographic evidence of acute cardiopulmonary process. Dictated by: Dictated on workstation # [id number]
[2022-07-20 07:19] LABS: INR 0.9 (0.8-1.4); PROTHROMBIN TIME PATIENT 12.1 SEC (12.2-14.7)
[2022-07-20] MEDS ORDERED: FAMOTIDINE 20 MG (PEPCID) TABLET PO STA (07:29)
[2022-07-20] MEDS ORDERED: ANTACID SUSP 30 ML UDC (MYLANTA) PO ONE (07:30)
[2022-07-20] MEDS ORDERED: LIDOCAINE 2% VISCOUS 15 ML UDC PO ONE (07:30)
[2022-07-20 07:38] LABS: CREATININE SERUM 1.18 MG/DL (0.60-1.30); POTASSIUM 4.4 MMOL/L (3.6-5.0)
[2022-07-20 07:39] LABS: ALBUMIN 4.3 GM/DL (3.2-4.5); BILIRUBIN,TOTAL 0.4 MG/DL (0.1-1.0); CALCIUM 8.9 MG/DL (8.5-10.1); MAGNESIUM 2.2 MG/DL (1.6-2.4); TOTAL PROTEIN 7.4 GM/DL (6.4-8.2)
[2022-07-20 07:40] LABS: LIPASE 52 U/L (8-78)
[2022-07-20 08:40] VITALS: BP 148/111
== END 2022-07-20 08:40 | disposition home or self-care (01) ==
LOC: EDUNIT# 06:26 → ER FS 06:29
DX: R07.89 Other chest pain (principal); R03.0 Elevated blood-pressure reading, without diagnosis of hypertension; Z28.310 Unvaccinated for COVID-19
CPT/HCPCS: 36415; 71045; 80053; 83690; 83735; 83874; 84484; 85025; 85610; 85730; 93005; 93041

== ENCOUNTER → 2022-09-29 | Outpatient (CLI) | payer BC ==
[2022-09-29 10:06] VITALS: BP 134/88
== END ==
LOC: CARD 08:40
PROVIDERS: ATTEND Internal Medicine Cardiovascular Disease
DX: R07.89 Other chest pain (principal)
CPT/HCPCS: C8929; C8930; 93306